=== PATIENT | male | born 1980 | race Caucasian/White ===

== ENCOUNTER 2017-01-30 11:54 | Emergency (ER) | payer BC ==
[2017-01-30 12:56] VITALS: BP 127/65
--- NOTE | 2017-01-30 13:24 | UC ---
Ear Complaint HPI - HPI Summary HPI Summary: ONSET OF BILATERAL EARS FEELING CLOGGED. SLIGHT DECREASE IN HEARING ON RIGHT SIDE. HAS H/O NEEDING CERUMEN IRRIGATED. NO FEVER OR URI SX. - History of Current Complaint Chief Complaint: UCEar Stated Complaint: PLUGGED EARS Time Seen by Provider: 01/30/17 13:12 Hx Obtained From: Patient Onset/Duration: Gradual Onset, Lasting Hours, Still Present Severity Initially: Mild Severity Currently: Mild Pain Intensity: 3 Pain Scale Used: 0-10 Numeric Aggravating Factors: Nothing Alleviating Factors: Nothing Associated Signs/Symptoms: Positive: Hearing Loss, Foreign Body Sensation. Negative: Discharge, Trauma to Ear, Swelling @, URI Symptoms - Allergies/Home Medications Allergies/Adverse Reactions: Allergies Allergy/AdvReac Type Severity Reaction Status Date / Time Aspirin Allergy Severe Swelling Verified 01/30/17 12:56 PMH/Surg Hx/FS Hx/Imm Hx Previously Healthy: Yes Other History Of: Negative For: HIV, Hepatitis B, Hepatitis C, Anticoagulant Therapy - Surgical History Surgical History: Yes Surgery Procedure, Year, and Place: wisdom teeth; colonoscopy 2004 (because father had colon cancer) - Family History Known Family History: Positive: Cardiac Disease, Hypertension, Diabetes Negative: Renal Disease - Social History Alcohol Use: Occasionally Substance Use Type: None Smoking Status (MU): Never Smoked Tobacco - Immunization History Most Recent Tetanus Shot: Unknown Review of Systems Constitutional: Negative ENT: Ear Ache Respiratory: Negative Cardiovascular: Negative Gastrointestinal: Negative All Other Systems Reviewed And Are Negative: Yes Physical Exam Triage Information Reviewed: Yes Appearance: Well-Appearing, No Pain Distress, Well-Nourished Vital Signs: Initial Vital Signs Temp 97.3 F 01/30/17 12:54 Pulse 67 01/30/17 12:54 Resp 18 01/30/17 12:54 BP 127/65 01/30/17 12:54 Pulse Ox 99 01/30/17 12:54 Vital Signs Reviewed: Yes Eyes: Positive: Conjunctiva Clear ENT: Positive: Hearing grossly normal, Pharynx normal, Other: - BILATERAL EACs WITH CERUMEN Neck: Positive: Supple Respiratory: Positive: No respiratory distress, No accessory muscle use Cardiovascular: Positive: Pulses Normal Abdomen Description: Positive: Soft Musculoskeletal: Positive: No Edema Neurological: Positive: Alert Psychological: Positive: Age Appropriate Behavior Skin: Negative: rashes Ear Complaint Course/Dx - Course Course Of Treatment: CERUMEN SUCCESSFULLY IRRIGATED FROM BOTH EARS BY RN. PINEDA LOMBARDI. - Differential Dx/Diagnosis Provider Diagnoses: BILATERAL CERUMEN IMPACTION Discharge - Discharge Plan Condition: Stable Disposition: HOME Patient Education Materials: Cerumen Impaction (ED) Additional Instructions: CERUMEN IMPACTION FOR MAINTENANCE, PUT SEVERAL DROPS OF OIL (MINERAL OIL, VEGETABLE OIL, OLIVE OIL , CANOLA OIL...) IN EACH EAR ONCE WEEKLY. THIS WILL HELP KEEP THE WAX SOFT AND WILL HOPEFULLY PREVENT BUILDUP IN THE FUTURE. IF CERUMEN BUILDUP STILL OCCURS IT WILL LIKELY BE EASIER TO IRRIGATE - DO NOT USE QTIPS OTHER THAN TO CLEAN SUPERFICIALLY THIS WILL PUSH THE WAX FURTHER INTO THE EAR CANAL. HAVING SAID THAT - NOW THAT YOUR EAR CANALS ARE CLEAR OF WAX YOU MAY USE A QTIP TO GENTLY AND CAREFULLY CLEAN YOUR EARS EVERY COUPLE OF DAYS TO KEEP WAX FROM BUILDING UP. DO NOT INSERT THE QTIP ANY FURTHER THAN THE DEPTH OF THE [facility]. CALL THE NUMBER BELOW FOR ASSISTANCE IN ESTABLISHING WITH A PCP An additional resource available to assist in finding the appropriate physician for your health care needs is the [facility] ([facility]). You may contact them by calling [phone].
== END 2017-01-30 14:08 | disposition home or self-care (01) ==
LOC: UCEAST 11:54
DX: H61.23 Impacted cerumen, bilateral (principal); Z88.6 Allergy status to analgesic agent
CPT/HCPCS: 99213; G0463

== ENCOUNTER 2017-03-03 13:47 | Emergency (ER) | payer BC ==
[2017-03-03 14:33] VITALS: BP 161/91
[2017-03-03] MEDS ORDERED: Indomethacin CAP* 25 MG CAP PO ONE (15:12)
--- NOTE | 2017-03-03 15:12 | UC ---
Ear Complaint HPI - HPI Summary HPI Summary: c/o pain in left great toe (usual gout pain) and needs ears flushed - History of Current Complaint Chief Complaint: UCGeneralIllness Stated Complaint: EARS CLOGGED AND TOE PAIN Time Seen by Provider: 03/03/17 14:59 Hx Obtained From: Patient Onset/Duration: Gradual Onset, Lasting Days Severity Initially: Moderate Severity Currently: Moderate Pain Intensity: 5 Pain Scale Used: 0-10 Numeric Aggravating Factors: Nothing Alleviating Factors: Nothing Associated Signs/Symptoms: Positive: Hearing Loss, Foreign Body Sensation - Allergies/Home Medications Allergies/Adverse Reactions: Allergies Allergy/AdvReac Type Severity Reaction Status Date / Time Aspirin Allergy Severe Swelling Verified 03/03/17 14:33 PMH/Surg Hx/FS Hx/Imm Hx Previously Healthy: No - Gout in the past Other History Of: Negative For: HIV, Hepatitis B, Hepatitis C, Anticoagulant Therapy - Surgical History Surgical History: Yes Surgery Procedure, Year, and Place: wisdom teeth; colonoscopy 2004 (because father had colon cancer) - Family History Known Family History: Positive: Cardiac Disease, Hypertension, Diabetes Negative: Renal Disease - Social History Occupation: Employed Full-time Lives: Alone Alcohol Use: Occasionally Alcohol Amount: q monthly Substance Use Type: None Smoking Status (MU): Never Smoked Tobacco Household Exposure Type: Cigarettes - Immunization History Most Recent Influenza Vaccination: Not UTD Most Recent Tetanus Shot: Unknown Review of Systems Constitutional: Negative Skin: Negative Eyes: Negative ENT: Ear Ache - feels clogged Respiratory: Negative Cardiovascular: Negative Gastrointestinal: Negative Genitourinary: Negative Motor: Negative Neurovascular: Negative Musculoskeletal: Arthralgia - left great toe pain Neurological: Negative Psychological: Negative Is Patient Immunocompromised?: No All Other Systems Reviewed And Are Negative: Yes Physical Exam Triage Information Reviewed: Yes Appearance: Well-Appearing, No Pain Distress, Well-Nourished Vital Signs: Initial Vital Signs Temp 97.4 F 03/03/17 14:28 Pulse 71 03/03/17 14:28 Resp 18 03/03/17 14:28 BP 161/91 03/03/17 14:28 Pulse Ox 98 03/03/17 14:28 Vital Signs Reviewed: Yes Eye Exam: Normal Eyes: Positive: Conjunctiva Clear ENT Exam: Normal ENT: Positive: Normal ENT inspection, Hearing grossly normal, TMs normal - cerumen impactions. Negative: Nasal congestion, Nasal drainage, Tonsillar swelling, Tonsillar exudate, Trismus, Muffled/hoarse voice Dental Exam: Normal Neck exam: Normal Neck: Positive: Supple, Nontender Respiratory Exam: Normal Respiratory: Positive: Chest non-tender, Lungs clear, No accessory muscle use Cardiovascular Exam: Normal Cardiovascular: Positive: RRR, Pulses Normal, Brisk Capillary Refill Musculoskeletal Exam: Normal Musculoskeletal: Positive: Strength Intact, ROM Intact, No Edema Neurological Exam: Normal Neurological: Positive: Alert, Muscle Tone Normal Psychological Exam: Normal Skin Exam: Normal Re-Evaluation - Re-Evaluation First Eval Change: Improved - ears clear after irragation Ear Complaint Course/Dx - Course Course Of Treatment: cerumen impaction resolved, cholcrys and indocin for gout - Differential Dx/Diagnosis Differential Diagnosis/HQI/PQRI: Cellulitis, Cerumen Impaction, Otitis Externa, Otitis Media, URI Provider Diagnoses: Cerumen impaction resolved, left great toe gout, high blood pressure with history of hypertension Discharge - Discharge Plan Condition: Stable Disposition: HOME Prescriptions: Colchicine* [Colcrys*] 0.6 mg PO DAILY #3 tab Indomethacin CAP* [Indocin CAP*] 25 - 50 mg PO TID PRN #40 cap PRN Reason: Pain Patient Education Materials: Cerumen Impaction (ED), Low Purine Diet (ED), Gout (ED), Hypertension (ED) Referrals: [facility] [facility] REFERRAL [Outside] - 2 Weeks
== END 2017-03-03 16:03 | disposition home or self-care (01) ==
LOC: UCEAST 13:47
DX: M10.072 Idiopathic gout, left ankle and foot (principal); H61.23 Impacted cerumen, bilateral; R03.0 Elevated blood-pressure reading, without diagnosis of hypertension; Z88.6 Allergy status to analgesic agent; Z77.22 Contact with and (suspected) exposure to environmental tobacco smoke (acute) (chronic)
CPT/HCPCS: 99213; A9270-GY; G0463

== ENCOUNTER 2017-05-08 12:16 | Emergency (ER) | payer BC ==
[2017-05-08 12:40] VITALS: BP 141/73
--- NOTE | 2017-05-08 12:49 | UC ---
Throat Pain/Nasal Pedro HPI - HPI Summary HPI Summary: Sore throat and URI for 5 days - History of Current Complaint Hx Obtained From: Patient Onset/Duration: Sudden Onset, Lasting Days - 6 Severity: Moderate Cough: None Associated Signs & Symptoms: Positive: Fever <Felicia Goodman - Last Filed: 05/08/17 13:20> <Ayse Ring - Last Filed: 05/08/17 13:30> - History of Current Complaint Chief Complaint: UCRespiratory Stated Complaint: SORE THROAT Time Seen by Provider: 05/08/17 12:40 - Allergies/Home Medications Allergies/Adverse Reactions: Allergies Allergy/AdvReac Type Severity Reaction Status Date / Time Aspirin Allergy Severe Swelling Verified 05/08/17 12:37 PMH/Surg Hx/FS Hx/Imm Hx Previously Healthy: Yes - Gout Other History Of: Negative For: HIV, Hepatitis B, Hepatitis C, Anticoagulant Therapy - Surgical History Surgical History: Yes Surgery Procedure, Year, and Place: wisdom teeth; colonoscopy 2004 (because father had colon cancer) - Family History Known Family History: Positive: Cardiac Disease, Hypertension, Diabetes Negative: Renal Disease - Social History Occupation: Employed Full-time Lives: With Family Alcohol Use: Occasionally Alcohol Amount: q monthly Substance Use Type: None Smoking Status (MU): Never Smoked Tobacco Household Exposure Type: Cigarettes - Immunization History Most Recent Influenza Vaccination: Not UTD Most Recent Tetanus Shot: Unknown <Felicia Goodman - Last Filed: 05/08/17 13:20> Review of Systems Constitutional: Fever Skin: Negative Eyes: Negative ENT: Sore Throat, Ear Ache Respiratory: Negative Cardiovascular: Negative Gastrointestinal: Negative Genitourinary: Negative Motor: Negative Neurovascular: Negative Musculoskeletal: Negative Neurological: Negative Psychological: Negative Is Patient Immunocompromised?: Yes All Other Systems Reviewed And Are Negative: No <Felicia Goodman - Last Filed: 05/08/17 13:20> Physical Exam Triage Information Reviewed: Yes Appearance: Well-Appearing, No Pain Distress, Obese Vital Signs: Initial Vital Signs Temp 98.3 F 05/08/17 12:37 Pulse 73 05/08/17 12:37 Resp 20 05/08/17 12:37 BP 141/73 05/08/17 12:37 Pulse Ox 100 05/08/17 12:37 Vital Signs Reviewed: Yes Eye Exam: Normal Eyes: Positive: Conjunctiva Clear ENT Exam: Normal ENT: Positive: Normal ENT inspection, Hearing grossly normal, Pharyngeal erythema, TMs normal, Uvula midline. Negative: Nasal congestion, Nasal drainage , Tonsillar swelling, Tonsillar exudate, Trismus, Muffled voice, Hoarse voice, Dental tenderness, Sinus tenderness Dental Exam: Normal Neck exam: Normal Neck: Positive: Supple, Nontender, No Lymphadenopathy Respiratory Exam: Normal Respiratory: Positive: Chest non-tender, Lungs clear, Normal breath sounds, No respiratory distress, No accessory muscle use Cardiovascular Exam: Normal Cardiovascular: Positive: RRR, No Murmur, Pulses Normal, Brisk Capillary Refill Musculoskeletal Exam: Normal Musculoskeletal: Positive: Strength Intact, ROM Intact, No Edema Neurological Exam: Normal Neurological: Positive: Alert, Muscle Tone Normal Psychological Exam: Normal Skin Exam: Normal <Felicia Goodman - Last Filed: 05/08/17 13:20> Vital Signs: Initial Vital Signs Temp 98.3 F 05/08/17 12:37 Pulse 73 05/08/17 12:37 Resp 20 05/08/17 12:37 BP 141/73 05/08/17 12:37 Pulse Ox 100 05/08/17 12:37 <Ayse Ring - Last Filed: 05/08/17 13:30> Diagnostics - Laboratory Diagnostic Studies Completed/Ordered: RST (-) <Felicia Goodman - Last Filed: 05/08/17 13:20> Throat Pain/Nasal Course/Dx - Course Assessment/Plan: prednisone, increase fluids, follow bp with pcp,re-check prn - Differential Dx/Diagnosis Provider Diagnoses: Viral pharyngitis <Felicia Goodman - Last Filed: 05/08/17 13:20> Discharge <Felicia Goodman - Last Filed: 05/08/17 13:20> <Ayse Ring - Last Filed: 05/08/17 13:30> - Discharge Plan Condition: Stable Disposition: HOME Prescriptions: predniSONE TAB* [Deltasone TAB*] 20 mg PO DAILY #6 tab Patient Education Materials: Pharyngitis (ED), Viral Syndrome (ED), Hypertension (ED) Forms: *Work Release Referrals: [facility] REFERRAL [Outside] - 1 Week Attestation Statement User Type: Provider - I was available for consult. This patient was seen by the GABINO. The patient was not presented to, seen by, or examined by me. -Araceli <Ayse Ring - Last Filed: 05/08/17 13:30>
== END 2017-05-08 13:22 | disposition home or self-care (01) ==
LOC: UCEAST 12:16
DX: Z72.89 Other problems related to lifestyle (principal); J02.8 Acute pharyngitis due to other specified organisms
CPT/HCPCS: 87651; 99212; G0463

== ENCOUNTER 2017-11-20 13:52 | Emergency (ER) | payer BC ==
--- OUTSIDE RECORDS SUMMARY | 2017-11-20 17:17 | XMS REPORT ---
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 Bao Henriquez MD Primary Care Physician Unavailable Payers Type Date Identification Numbers Payment Provider Subscriber Commercial Effective: Policy Number: [id number] BC/BS Of [employer] Florentino Goins 2015 PayID: [id number] [address] [place] [address] Problems Description No Information Family History Date Family Member(s) Problem(s) Comments Father due to Colon Cancer () Father Diabetes Mellitus, II Mother Hypertension Mother 63 Social History Type Date Description Comments 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 Allergies, Adverse Reactions, Alerts Date Description Reaction Status Severity Comments 09/09/2017 Aspirin active Medications Medication Date Status Form Strength Qnty SIG Indications Ordering Provider Turmeric Active Capsules 500mg 2 by mouth Unknown 0 every day Fish Oil Active Capsules 1000mg take one Unknown 0 capsule by mouth every day (heart health) Vital Signs Date Vital Result Comment 11/15/2017 BP Systolic 120 mmHg BP Diastolic 76 mmHg Heart Rate 80 /min Body Temperature 98.2 F Respiratory Rate 17 /min Height 69 inches 5'9" Weight 390.25 lb BMI (Body Mass Index) 57.6 kg/m2 09/09/2017 BP Systolic 134 mmHg BP Diastolic 90 mmHg Heart Rate 72 /min Body Temperature 97.9 F Respiratory Rate 18 /min Height 69 inches 5'9" Weight 382.12 lb BMI (Body Mass Index) 56.4 kg/m2 Results Test Date Test Result H/L Range Note Comprehensive Metabolic Prof 09/12/2017 Sodium 140 mEq/L 134-149 Potassium 4.4 mEq/L 3.6-5.5 Chloride 101 mEq/L 94-112 Carbon Dioxide 28 mEq/L 21-32 Glucose 111 mg/dL High 70-105 1 BUN 15 mg/dL 6-26 Creatinine 1.0 mg/dL 0.6-1.4 BUN/Creat Ratio 15.0 CALC 8.0-36.0 Calcium 9.4 mg/dL 8.6-10.2 Total Protein 7.0 g/dL 6.4-8.3 Albumin 4.4 g/dL 3.8-5.5 Globulin 2.6 g/dL 2.0-4.8 A/G Ratio 1.7 CALC 0.6-2.3 Alk. Phosphatase 54 U/L 22-95 Alt (SGPT) 38 U/L High 7-35 2 Ast (Sgot) 25 U/L 5-34 Total Bilirubin 0.3 mg/dL 0.2-1.3 GFR Non- >60 ml/min/1.73m^ >=60 GFR >60 ml/min/1.73m^ >=60 Lipid Profile 09/12/2017 Cholesterol 209 mg/dL High 120-200 Triglycerides 202 mg/dL High 30-200 HDL Cholesterol 35 mg/dL 30-70 LDL (Calculated) 134 CALC High 0-129 VLDL Cholesterol 40 mg/dL 0-50 HDL Risk Factor 6.0 CALC High 0.0-4.4 Laboratory test finding 09/12/2017 TSH 2.20 mIU/L 0.50-6.00 CBC Electronic Fma 09/12/2017 WBC 8.0 x10^3/UL 4.0-10.0 RBC 4.94 x10^6/UL 3.93-6.00 HGB 14.2 g/dL 12.0-17.0 HCT 43 % 35-50 MCV 86.4 fL 80.0-95.0 MCH 28.7 pg 25.6-32.2 MCHC 33.3 g/dL 32.2-36.0 RDW-CV 12.4 % 11.6-14.4 PLT 222 x10^3/UL 163-400 MPV 9.0 fL Low 9.4-12.4 Vickie# 4.99 x10^3/UL 1.56-6.13 Lymph# 2.22 x10^3/UL 1.18-3.74 Graham# 0.46 x10^3/UL 0.24-0.82 Eos # 0.2 x10^3/UL 0.0-0.5 Baso # 0.03 x10^3/UL 0.01-0.08 Vickie% 62.7 % 34.0-70.0 Lymph % 27.9 % 20.0-52.0 Graham% 5.8 % 5.0-12.0 Eos% 2.9 % 0.7-7.0 Baso% 0.4 % 0.1-1.2 1 RESULTS VERIFIED BY REPEAT ANALYSIS 2 RESULTS VERIFIED BY REPEAT ANALYSIS Procedures Description No Information Encounters Type Date Location Provider CPT E/M Dx Office Visit 09/09/2017 3:50p [place] [address] Z00.00 E66.01 G47.39 Plan of Care Future Appointment(s):12/22/2017 9:00 am - Bao Henriquez MD at Main [id number]/15/2017 - Katelin Evans, [id number] Other fatigueNew Labs:Lyme Total /Igm/G WB Regardless/LcorpErythrocyte Sed RateAna & Rheumatoid FactorTick- Borne Disease AB PNLComments:The patient was instructed to call or return to the office if there was no improvement .R53.1 LlcejmhoO95.0 SomnolenceAllComments:~B_~U_Medication Management~b_~u_ Patient Understands medications he 's taking? Yes No Are there Barriers to Adherence? Yes No Has the patient been asked about herbal supplements and therapies, and OTC meds? Yes No
--- OUTSIDE RECORDS SUMMARY | 2017-11-20 17:17 | XMS REPORT ---
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 Active Family History Date Family Member(s) Problem(s) Comments : (age 54 Years) Father due to Cancer, Colon type 1 DM Mother Hypertension Siblings None Social History Type Date Description Comments Marital Status Significant Other Lives With Spouse Occupation It Cigarette Use Never Smoked Cigarettes ETOH Use Rarely consumes alcohol Smoking Patient has never smoked Recreational Drug Use Denies Drug Use Daily Caffeine Consumes on average 1 cup of regular coffee per day Exercise Type/Frequency Exercises sporadically Allergies, Adverse Reactions, Alerts Date Description Reaction Status Severity Comments 01/04/2006 Aspirin active puffy eyes. Medications Medication Date Status Form Strength Qnty SIG Indications Ordering Provider Fish Oil / Active Capsules 500mg 1 by Unknown 0000 mouth a day No Active 12/14/ Hx Unknown Medications 2014 - 2017 Cyclobenzaprine 04/22/ Hx Tablets 10mg 14tabs one by S13.8xxD Kim HCL 2015 - mouth at [facility], 05/26/ night as M.D. 2014 needed No Active 03/10/ Hx Unknown Medications 2014 - 2014 Cpap 01/04/ Hx Tablets mask hs Bartolome 2006 - S. 03/08/ Shadi 2013 M.D. Vital Signs Date Vital Result Comment 11/03/2017 Height 69 inches 5'9" Weight 390.19 lb Heart Rate 78 /min BP Systolic Sitting 142 mmHg Rue large cuff BP Diastolic Sitting 78 mmHg Rue large cuff Respiratory Rate 16 /min O2 % BldC Oximetry 98 % On Ra BMI (Body Mass Index) 57.6 kg/m2 10/12/2017 Height 69 inches 5'9" Weight 389.00 lb Heart Rate 76 /min BP Systolic Sitting 126 mmHg BP Diastolic Sitting 78 mmHg Respiratory Rate 14 /min O2 % BldC Oximetry 96 % BMI (Body Mass Index) 57.4 kg/m2 Neck Circumference in inches 18.75 05/26/2015 Weight 270.00 lb Heart Rate 65 /min BP Systolic Sitting 116 mmHg BP Diastolic Sitting 64 mmHg Body Temperature 97.5 F Pain Level 5 neck O2 % BldC Oximetry 98 % 04/22/2015 Weight 260.00 lb Heart Rate 57 /min BP Systolic Sitting 107 mmHg BP Diastolic Sitting 66 mmHg Body Temperature 97.0 F Pain Level 5 O2 % BldC Oximetry 99 % 03/10/2015 Height 70 inches 5'10" Weight 257.00 lb Heart Rate 69 /min BP Systolic Sitting 116 mmHg BP Diastolic Sitting 71 mmHg Body Temperature 97.2 F BMI (Body Mass Index) 36.9 kg/m2 01/04/2006 Height 70 inches 5'10" Weight 306.00 lb Heart Rate 69 /min BP Systolic Sitting 140 mmHg left arm, right arm 132/88 BP Diastolic Sitting 82 mmHg left arm, right arm 132/88 BP Systolic Standing 130 mmHg BP Diastolic Standing 80 mmHg BMI (Body Mass Index) 43.9 kg/m2 Results Description No Information Procedures Date CPT Code Description Status 10/17/2017 76745 Sleep Study Unattended,HRT Rate,Oxygen Sat,Resp Completed Effort/Airflow 01/04/2006 86737 EKG Tracing & Interpretation Completed 01/04/2006 47952 EKG Tracing & Interpretation Completed Encounters Type Date Location Provider CPT E/M Dx Office Visit 05/26/2015 [facility] Kim Tripp, [address] S13.8xxD 7:30a - Kimberly Mcfarland Office Visit 04/22/2015 [facility] Kim Tripp, 52029 S13.8xxD 8:50a - Kimberly Mcfarland Office Visit 03/10/2015 [facility] Kim Tripp, 89486 S13.8xxA 7:30a - Kimberly Mcfarland Office Visit 01/04/2006 [facility] Didisuzan NickLisseth [address] 794.31 2:20p Bartolo Hsu 785.2 Plan of Care Future Appointment(s):12/22/2017 11:15 am - Shari Watson DNP, RN, MANAGER TRANSITION-BC at [facility]11/03/2017 - Shari Watson DNP, RN, MANAGER TRANSITION- BCG47.33 Obstructive sleep apnea (adult) (pediatric)New Orders:Sleep- HomecareComments:10/17/17 HST AHI 15/hour, kenneth oxygen 73 %, oxygen sat under 90%, 13.8 minutes.Follow up:6 weeksRecommendations:Sleep apnea to start PAP at 5-15 cm Review of sleep study in detail. Review of risks of untreated sleep apnea including cardiovascular events: rhythm irregularities, heart attack , stroke; gastro esophageal reflux disease (GERD); diabetes; anxiety, depression ; high blood pressure; accidents (machinery and automobile) Recommendation for PAP other treatment modalities NON-PAP including oral appliance/mandibular advancement device, positional strategies , and surgery discussed. Referral for PAPdecarmene to be sent to [facility] phone: [phone] Equipment appointment will take about 45 minutes , the DME provider will call you within 5 days toset you up for the device. If you do not hear from them call the Sleep Center. The mask will have a30-day guarantee, if you have mask problems call the DME provider to have a fitting for a different mask. Cleaning Wipe off mask daily (baby wipe-no scent, or warm water) Clean mask, tubing, filter, and water chamber weekly in mild no scent dish soap and water. Hang to dry. So-Clean is an option (not covered by insurance) If you have problems with the air pressure call the sleep center and speak to a nurse. If you have any sleepiness while driving you MUST avoid operating a vehicle or machinery. If you have any further questions, please call the [facility] Disorder Center at [phone].
[2017-11-20 17:23] VITALS: BP 131/70
[2017-11-20] MEDS ORDERED: DOXYcycline CAP(*) 100 MG PO ONE (18:01)
--- NOTE | 2017-11-20 19:39 | ED ---
Fox Ordonez Jade, scribed for Aj Kirk MD on 11/20/17 at 1827 . Bite Injury/Animal - HPI Summary HPI Summary: Pt is a 37 y/o male who presents to [facility] [place] s/p tick bite. He states he has had several tick bites over the past few months, and noticed a bulls-eye rash 10 days ago on his left pec. His PCP did a lyme blood test, but no results have come back yet. His PCP did not put him on antibiotics for Lyme disease. Pt states the tick bite area is painful, he has horrible back pain, he feels like his hands are swollen, and he has joint aches. He denies any fevers. - History of Current Complaint Chief Complaint: UCGeneralIllness Stated Complaint: TICK BITE Time Seen by Provider: 11/20/17 17:40 Hx Obtained From: Patient Onset of Injury: Happened weeks ago - Multiple tick bites over past few months Type of Bite: Wild Animal - Tick Has Animal Been Immunized?: No Severity Currently: Moderate Pain Intensity: 6 Pain Scale Used: 0-10 Numeric Aggravating Factor(s): Nothing Alleviating Factor(s): Nothing Associated Signs And Symptoms: Positive: Erythema - Allergies/Home Medications Allergies/Adverse Reactions: Allergies Allergy/AdvReac Type Severity Reaction Status Date / Time aspirin Allergy Severe Swelling Verified 11/20/17 17:23 PMH/Surg Hx/FS Hx/Imm Hx Endocrine/Hematology History: Denies: Hx Anticoagulant Therapy, Hx Diabetes, Hx Thyroid Disease Cardiovascular History: Denies: Hx Congestive Heart Failure, Hx Deep Vein Thrombosis, Hx Hypertension , Hx Myocardial Infarction, Hx Pacemaker/ICD Respiratory History: Denies: Hx Asthma, Hx Chronic Obstructive Pulmonary Disease (COPD), Hx Lung Cancer, Hx Pneumonia, Hx Pulmonary Embolism GI History: Denies: Hx Gall Bladder Disease, Hx Gastrointestinal Bleed, Hx Ulcer, Hx Urosepsis History: Denies: Hx Kidney Stones, Hx Renal Disease Neurological History: Denies: Hx Dementia, Hx Migraine, Hx Seizures, Hx Transient Ischemic Attacks (TIA) Psychiatric History: Denies: Hx Anxiety, Hx Depression, Hx Schizophrenia, Hx Bipolar Disorder - Surgical History Surgery Procedure, Year, and Place: wisdom teeth; colonoscopy 2004 (because father had colon cancer) Infectious Disease History: No Infectious Disease History: Denies: Hx Clostridium Difficile, Hx Hepatitis, Hx Human Immunodeficiency Virus (HIV), Hx of Known/Suspected MRSA, Hx Shingles, Hx Tuberculosis, Hx Known/ Suspected VRE, Hx Known/Suspected VRSA, History Other Infectious Disease, Traveled Outside the [place] in Last 30 Days - Family History Known Family History: Positive: Cardiac Disease, Hypertension, Diabetes Negative: Renal Disease - Social History Alcohol Use: Occasionally Alcohol Amount: q monthly Substance Use Type: Reports: None Smoking Status (MU): Never Smoked Tobacco Review of Systems Positive: Other - Swollen hands. Negative: Fever Positive: Arthralgia, Other - Back pain Positive: Other - Painful tick bite above left nipple All Other Systems Reviewed And Are Negative: Yes Physical Exam - Summary Physical Exam Summary: Appearance: Well appearing, no pain distress Skin: warm, dry, reflects adequate perfusion. Circular erosion approximately 8 mm in size just above the left nipple with light erythema widely spread around it. Head/face: normal Eyes: EOMI, JUSTINA ENT: normal Neck: supple, non-tender Respiratory: CTA, breath sounds present Cardiovascular: RRR, pulses symmetrical Abdomen: non-tender, soft Bowel Sounds: present Musculoskeletal: normal, strength/ROM intact Neuro: normal, sensory motor intact, A&Ox3 Triage Information Reviewed: Yes Vital Signs On Initial Exam: Initial Vitals Temp Pulse Resp BP Pulse Ox 98.8 F 82 18 131/70 99 11/20/17 17:16 11/20/17 17:16 11/20/17 17:16 11/20/17 17:16 11/20/17 17:16 Vital Signs Reviewed: Yes Diagnostics - Vital Signs Vital Signs Temp Pulse Resp BP Pulse Ox 11/20/17 17:16 98.8 F 82 18 131/70 99 - Laboratory Lab Statement: Any lab studies that have been ordered have been reviewed, and results considered in the medical decision making process. Bite Injury Course/Dx - Course Course Of Treatment: Patient with a tick that was fully removed by the patient and he was tested for Lyme by his primary care physician. He had bull's-eye rash previously and now is experiencing arthralgia. We will treat presumptively for Lyme disease until test returns. - Diagnoses Provider Diagnosis: Tick bite, Lyme disease Discharge - Sign-Out/Discharge Documenting (check all that apply): Discharge/Admit/Transfer - Discharge Plan Condition: Good Disposition: HOME Prescriptions: DOXYcycline CAP(*) [DOXYcycline 100MG CAP(*)] 100 mg PO BID #42 cap Patient Education Materials: Lyme Disease (ED), Tick Bite (ED) Referrals: Bao Henriquez MD [Primary Care Provider] - Additional Instructions: Call your doctor first thing in the morning to follow-up. Doxycycline can make you sun sensitive and also upset the stomach. Take with food. Return with fevers, vomiting, confusion, drooping in the face, worse or other concerns. - Billing Disposition and Condition Condition: GOOD Disposition: Home The documentation as recorded by the Fox suarez Jade accurately reflects the service I personally performed and the decisions made by me, Aj Kirk MD.
== END 2017-11-20 18:10 | disposition home or self-care (01) ==
LOC: UCEAST 13:52
DX: S20.362A Insect bite (nonvenomous) of left front wall of thorax, initial encounter (principal); W57.XXXA Bitten or stung by nonvenomous insect and other nonvenomous arthropods, initial encounter; Y93.9 Activity, unspecified; Y92.9 Unspecified place or not applicable; A69.20 Lyme disease, unspecified; Z88.6 Allergy status to analgesic agent; Z82.49 Family history of ischemic heart disease and other diseases of the circulatory system; Z83.3 Family history of diabetes mellitus
CPT/HCPCS: 99212; A9270-GY; G0463